=== PATIENT | male | born 1985 | race Caucasian/White ===

== ENCOUNTER 2017-08-27 09:19 | Emergency (ER) | payer MEDICAID ==
[~2017-08-27] VITALS: Ht 6206.4 cm; Wt 95.5 kg
[~2017-08-27 09:19] MED LIST: CYCL-1 PO; IBUP-1986 PO
[2017-08-27] MEDS ORDERED: IBUP-1984 PO (10:31)
[2017-08-27 10:37] VITALS: BP 148/92
== END 2017-08-27 10:40 | disposition home or self-care (01) ==
LOC: ER 09:19
DX: J39.2 Other diseases of pharynx (principal); F12.90 Cannabis use, unspecified, uncomplicated; Z98.890 Other specified postprocedural states; F17.200 Nicotine dependence, unspecified, uncomplicated
CPT/HCPCS: 70360; 99283; 99284

== ENCOUNTER 2018-07-01 08:43 | Emergency (ER) | payer MEDICAID, OTHER ==
[2018-07-01 08:54] VITALS: BP 147/84
[2018-07-01] MEDS ORDERED: normal saline 1000ML IV soln IVB ONE (08:55)
[2018-07-01] MEDS ORDERED: ondansetron/PF 4mg/2ml inj IV ONE (08:55)
[2018-07-01] MEDS ORDERED: ketorolac trometh. 30mg/ml inj. IV ONE (08:55)
[2018-07-01 09:27] LABS: BASOPHILS % (AUTO) 0.4 % (0-1); EOSINOPHILS # (AUTO) 0.1 X10'3 (0-0.9); EOSINOPHILS % (AUTO) 0.9 % (0-6); HEMATOCRIT 44.3 % (42.0-52.0); HEMOGLOBIN 14.9 g/dl (14.0-17.9); LYMPHOCYTES # (AUTO) 0.7 X10'3 (1.1-4.8); LYMPHOCYTES % (AUTO) 12.6 % (21-51); MEAN CORPUSCULAR HEMOGLOBIN 31.5 PG (27.0-31.0); MEAN CORPUSCULAR HGB CONC 33.7 % (33.0-36.5); MEAN CORPUSCULAR VOLUME 93.3 FL (78-98); MEAN PLATELET VOLUME 9.1 FL (7.4-10.4); MONOCYTES # (AUTO) 0.9 X10'3 (0-0.9); MONOCYTES % (AUTO) 15.9 % (2-12); NEUTROPHILS # (AUTO) 3.9 X10'3 (1.8-7.7); NEUTROPHILS % (AUTO) 70.2 % (42-75); PLATELET COUNT 119 X10'3 (140-440); RED BLOOD COUNT 4.75 X10'6 (4.70-6.10); RED CELL DISTRIBUTION WIDTH 11.8 % (11.5-14.5); WHITE BLOOD COUNT 5.6 X10'3 (4.5-11.0)
[2018-07-01] MEDS ORDERED: sucralfate 1 gm tablet PO ONE (09:30)
[2018-07-01] MEDS ORDERED: LIDOcaine Viscous 15ml cup PO ONE (09:30)
[2018-07-01] MEDS ORDERED: mag hydrox/Alum hydrox/simeth 30ml oral suspension PO ONE (09:30)
[2018-07-01 09:37] LABS: ALANINE AMINOTRANSFERASE 28 U/L (12-78); ALBUMIN 3.9 G/DL (3.4-5.0); ALBUMIN/GLOBULIN RATIO 1.1 (1.1-1.5); ALKALINE PHOSPHATASE 83 IU/L (46-116); ANION GAP 12 (8-16); ASPARTATE AMINO TRANSFERASE 23 U/L (10-37); BILIRUBIN,TOTAL 0.4 MG/DL (0.1-1.0); BLOOD UREA NITROGEN 13 MG/DL (7-18); BUN/CREATININE RATIO 13.7 (5.4-32.0); CALCIUM 8.7 MG/DL (8.5-10.1); CHLORIDE 103 MMOL/L (99-107); CREATININE 0.95 MG/DL (0.60-1.10); GLUCOSE 134 MG/DL (70-104); LIPASE 121 U/L (73-393); POTASSIUM 3.7 MMOL/L (3.5-5.1); SODIUM 139 MMOL/L (135-145); TOTAL CARBON DIOXIDE 23.6 MMOL/L (24-32); TOTAL PROTEIN 7.4 G/DL (6.4-8.2); eGFR > 90 ML/MIN
[2018-07-01] MEDS ORDERED: ONDA4TAB6 PO (09:42)
[2018-07-01] MEDS ORDERED: FAMO40TA73 PO (09:42)
== END 2018-07-01 14:39 | disposition home or self-care (01) ==
LOC: ER 08:43
DX: R10.13 Epigastric pain (principal); R73.9 Hyperglycemia, unspecified; F12.10 Cannabis abuse, uncomplicated; R42 Dizziness and giddiness; R19.7 Diarrhea, unspecified
CPT/HCPCS: 36415; 71045; 80053; 83690; 85025; 96361; 96374; 96375; 99284; J1885; J2405; J7030

== ENCOUNTER 2021-05-30 11:36 | Emergency (ER) | payer MEDICAID ==
[~2021-05-30] VITALS: Ht 188 cm; Wt 97.7 kg
[~2021-05-30 11:36] MED LIST changes: +FAMO40TA73 PO; +ONDA4TAB6 PO
[2021-05-30 11:39] VITALS: BP 176/101
[2021-05-30] MEDS ORDERED: morphine 4 MG/ML inj SYRINge IM ONE (11:55)
[2021-05-30] MEDS ORDERED: ondansetron 4mg rapidly disintigrating tab PO ONE (11:55)
--- NOTE | 2021-05-30 12:10 | NUR ---
[place] AT BEDSIDE
[2021-05-30] MEDS ORDERED: ketorolac tromethamine 15mg/ml inj. IM ONE (12:30)
[2021-05-30] MEDS ORDERED: orphenadrine citrate 60mg/2ml inj. IM ONE (12:30)
[2021-05-30] MEDS ORDERED: ORPH100T2 PO (14:48)
[2021-05-30] MEDS ORDERED: IBUP-1984 PO (14:48)
== END 2021-05-30 15:30 | disposition home or self-care (01) ==
LOC: ER 11:36
DX: S39.012A Strain of muscle, fascia and tendon of lower back, initial encounter (principal); N50.811 Right testicular pain; F12.90 Cannabis use, unspecified, uncomplicated; Z98.890 Other specified postprocedural states; Z79.899 Other long term (current) drug therapy; X58.XXXA Exposure to other specified factors, initial encounter; Y93.89 Activity, other specified; Y92.89 Other specified places as the place of occurrence of the external cause; Y99.8 Other external cause status
CPT/HCPCS: 76870; 93976; 96372; 99284; J1885; J2270; J2360

== ENCOUNTER 2022-08-14 12:57 | Emergency (ER) | payer MEDICAID ==
[~2022-08-14] VITALS: Ht 188 cm; Wt 95.5 kg
[~2022-08-14 12:57] MED LIST changes: +ORPH100T2 PO
[2022-08-14] MEDS ORDERED: normal saline 1000ml 1,000 ML IV ONE (15:40)
[2022-08-14] MEDS ORDERED: ondansetron 4mg rapidly disintigrating tab PO ONE (15:40)
[2022-08-14] MEDS ORDERED: acetaminophen 325mg tablet PO ONE (15:40)
[2022-08-14 16:47] VITALS: BP 134/74
[2022-08-14] MEDS ORDERED: diphenhydrAMINE 50 mg/ml inj IV ONE (17:10)
[2022-08-14] MEDS ORDERED: ketorolac trometh. 30mg/ml inj. IV ONE (17:10)
[2022-08-14] MEDS ORDERED: metoclopramide 5 mg/ml inj IV ONE (17:10)
[2022-08-14 17:17] LABS: CLARITY,URINE CLEAR (Clear); COLOR,URINE YELLOW (Yellow); GLUCOSE, URINE NEGATIVE (Neg); KETONES,URINE 15 mg/dl (Neg); LEUKOCYTE ESTERASE ,URINE NEGATIVE (Neg); NITRITES, URINE NEGATIVE (Neg); OCCULT BLOOD,URINE NEGATIVE (Neg); PH,URINE 8.5 (4.8-8.0); PROTEIN,URINE NEGATIVE (Neg); UA COLLECTION TYPE CLN CATCH MIDSTREAM; UROBILINOGEN,URINE 0.2 E.U/dL (0.2-1.0)
[2022-08-14] MEDS ORDERED: ONDA4TAB12 PO (17:32)
== END 2022-08-14 18:27 | disposition home or self-care (01) ==
LOC: ER 12:57
DX: B34.9 Viral infection, unspecified (principal); Z20.822 Contact with and (suspected) exposure to COVID-19; F12.10 Cannabis abuse, uncomplicated; Z88.6 Allergy status to analgesic agent; Z79.899 Other long term (current) drug therapy; Z79.1 Long term (current) use of non-steroidal anti-inflammatories (NSAID); Z79.2 Long term (current) use of antibiotics
CPT/HCPCS: 81003; 87502; 87503; 87635; 96361; 96374; 96375; 99284; C9803; J1200; J1885; J2765; J7030